=== PATIENT | female | born 1970 | race Caucasian/White ===

== ENCOUNTER 2017-04-01 09:23 | Emergency (ER) | payer OTHER ==
[~2017-04-01] VITALS: Ht 147.3 cm; Wt 86.4 kg
[~2017-04-01 09:23] MED LIST: NOCURR
[2017-04-01 10:02] LABS: GLUCOSE,POINT OF CARE 89 MG/DL (70-110)
[2017-04-01] MEDS ORDERED: ACETAMINOPHEN 325 MG TABLET PO ONE (12:15)
[2017-04-01 13:52] VITALS: BP 132/80
== END 2017-04-01 13:54 | disposition home or self-care (01) ==
LOC: EMS 09:24
DX: M25.561 Pain in right knee (principal); E11.9 Type 2 diabetes mellitus without complications
CPT/HCPCS: 82962; 99284

== ENCOUNTER 2018-04-01 11:44 | Emergency (ER) | payer OTHER ==
[~2018-04-01] VITALS: Ht 165.1 cm; Wt 109.1 kg
[2018-04-01 12:13] VITALS: BP 135/81
[2018-04-01] MEDS ORDERED: GuaiFENesin/D-METHORPHAN [SUGAR-FREE] 200-20MG/10 ML SYRUP UDCUP PO ONE (12:45)
[2018-04-01] MEDS ORDERED: BENZOCAINE/RESORCINOL 30 GM CREAM TP ONE (13:45)
== END 2018-04-01 14:35 | disposition home or self-care (01) ==
LOC: EMS 11:45
DX: N76.0 Acute vaginitis (principal); R05 Cough; F32.9 Major depressive disorder, single episode, unspecified; E11.9 Type 2 diabetes mellitus without complications; F20.9 Schizophrenia, unspecified; R62.50 Unspecified lack of expected normal physiological development in childhood
CPT/HCPCS: 87210; 99283